=== PATIENT | female | born 1945 | race Caucasian/White ===

== ENCOUNTER → 2016-09-26 | Outpatient (CLI) | payer OTHER ==
[2016-09-26 13:06] LABS: CHOLESTEROL/HDL RATIO 1.9
== END | disposition home or self-care (01) ==
LOC: C.LABBFT 08:19
PROVIDERS: ATTEND Internal Medicine
DX: I65.29 Occlusion and stenosis of unspecified carotid artery (principal)

== ENCOUNTER → 2016-11-20 | Outpatient (CLI) | payer OTHER ==
--- NOTE | 2016-11-20 13:27 | MAMMOGRAPHY REPORT ---
BILATERAL DIGITAL SCREENING MAMMOGRAM WITH CAD: 11/20/2016 CLINICAL HISTORY: Routine screening. Patient has no complaints. TECHNIQUE: Bilateral CC and MLO views were obtained. Current study was also evaluated with a Compute r Aided Detection (CAD) system. COMPARISON: Comparison is made to exams dated: 11/20/2015 mammogram, 11/17/2014 mammogram, 11/16/2013 m ammogram, 11/09/2012 mammogram, 11/07/2011 mammogram, and 11/02/2010 mammogram - [facility]ter. BREAST COMPOSITION: There are scattered areas of fibroglandular density in both breasts. FINDINGS: There are scattered punctate benign-appearing microcalcifications in the breasts. No new s uspicious mass, architectural distortion or cluster of microcalcifications is seen. IMPRESSION: ACR BI-RADS CATEGORY 1: NEGATIVE There is no mammographic evidence of malignancy. A 1 year screening mammogram is recommended. The pa tient will receive written notification of the results. Approximately 10% of breast cancers are not detected with mammography. A negative mammographic report should not delay biopsy if a clinically suggestive mass is present. Sofía Parkre M.D. ay/:11/20/2016 11:38:17 Picker Tender Helper: Tierney ELDRIDGE(Pavan)(M), [facility] letter sent: Normal 1/2 BI-RADS Code: ACR BI-RADS Category 1: Negative
== END ==
LOC: C.MAMM 11:16
PROVIDERS: ATTEND Obstetrics & Gynecology
DX: Z12.31 Encounter for screening mammogram for malignant neoplasm of breast (principal)

== ENCOUNTER → 2017-05-06 | Outpatient (CLI) | payer OTHER ==
[2017-05-06 12:10] LABS: BASO % 0.3 %; BASO ABS # 0.02 K/uL (0-0.2); COMPLETE YES; EOS % 0.8 %; HEMATOCRIT 41.5 % (37-47); IG% 0.2 %; LYMPH ABS # 1.77 K/uL (1.2-3.4); MEAN CELL VOLUME 99.3 fL (80-100); MEAN CORPUSCULAR HEMOGLOBIN 32.8 pg (25-34); MONO % 10.3 %; NEUT % 60.4 %; PLATELET COUNT 237 K/uL (130-400); RED BLOOD COUNT 4.18 M/uL (4.2-5.4); WHITE BLOOD COUNT 6.33 K/uL (4.8-10.8)
[2017-05-06 12:45] LABS: ALT/SGPT 28 U/L (12-78); AST/SGOT 26 U/L (15-37); BLOOD UREA NITROGEN 21 mg/dl (7-18); BUN/CREATININE RATIO 31.7 (10-20); CALCIUM 8.9 mg/dl (8.5-10.1); CARBON DIOXIDE 27 mmol/L (21-32); CHLORIDE 106 mmol/L (98-107); CHOLESTEROL 169 mg/dl (0-200); CREATININE 0.66 mg/dl (0.60-1.20); GLUCOSE 87 mg/dl (70-99); POTASSIUM 4.1 mmol/L (3.5-5.1); SODIUM 138 mmol/L (136-145); TRIGLYCERIDES 134 mg/dl (0-150); VERY LOW DENSITY LIPOPROT CALC 27 mg/dl
[2017-05-06 12:46] LABS: ALKALINE PHOSPHATASE 66 U/L (45-117); CHOLESTEROL/HDL RATIO 1.9; HDL CHOLESTEROL 87 mg/dl; LDL CHOLESTEROL CALCULATED 55 mg/dl
[2017-05-06 12:54] LABS: ESTIMATED AVERAGE GLUCOSE 114 mg/dl; HA1C FLAG Normal (Normal)
== END | disposition home or self-care (01) ==
LOC: C.LABBFT 10:05
PROVIDERS: ATTEND Physician Assistant Medical
DX: M85.80 Other specified disorders of bone density and structure, unspecified site (principal)

== ENCOUNTER → 2018-01-26 | Day surgery (SDC) | payer OTHER ==
[2018-01-15 07:50] VITALS: Ht 160 cm; Wt 71.8 kg
[~2018-01-26] VITALS: Ht 160 cm; Wt 71.8 kg
[~2018-01-26] MED LIST: ATOR10TA82 PO; CHOL20007 PO; COEN1CAP7 PO; FLUT0.15 NAE; IMT100 PO; LIDOCAINE HCL 2% 2 ML VIAL (20MG/ML) ONE; PROPOFOL IV EMULSION 10 MG/ML 20 ML VIAL ONE
--- NOTE | 2018-01-26 09:15 | Endo History and Physical ---
History & Physical Date of Service: Jan 26, 2018. Chief Complaint: Screening f/u for polyp Referring Physician: Ceci History of Present Illness 72 yo CF who presents for colonoscopy secondary to history of colon polyps. Past Surgical History Hx Cardiac Surgery: No Hx Internal Defibrillator: No Hx Pacemaker: No Hx Abdominal Surgery: Yes (D&C) Hx of Implantable Prosthesis: No Hx Post-Op Nausea and Vomiting: No Hx Cancer Surgery: No Hx Thoracic Surgery: No Hx Orthopedic: No Hx Urinary Tract Surgery: No Family History None Social History Smoking Status: Never Smoker Hx Substance Use: No Hx Alcohol Use: Yes (1 DRINK DAILY (ON AVERAGE DURING THE SUMMER)) Allergies Coded Allergies: Amoxicillin (Verified Allergy, Unknown, RASH, 01/15/18) Clavulanic Acid (Verified Allergy, Unknown, RASH, 01/15/18) Uncoded Allergies: GREEN BEANS (Allergy, Unknown, RASH, 01/15/18) Current Medications Reported Home Medications Medications Dose Route/Sig Max Daily Dose Days Date Category Flonase Allergy Relief (Fluticasone Propionate (Nasal)) 50 Mcg/Act Spr 1 [place] DAILY PRN 01/15/18 Reported Coq10 (Coenzyme Q10 (Ubidecarenone)) 200 Mg Cap 1 Cap PO QPM 01/15/18 Reported Vitamin D3 (Cholecalciferol) 2,000 Unit Tab 1 Tab PO QPM 01/15/18 Reported Imitrex (Sumatriptan Succinate) 100 Mg Tab 100 Mg PO PRN PRN 01/15/18 Reported Lipitor (Atorvastatin Calcium) 10 Mg Tab 10 Mg PO Q3DAYS 01/15/18 Reported Vital Signs Weight (Kilograms): 71.82 Height (Feet): 5 Height (Inches): 3 Date Time Temp Pulse Resp B/P (MAP) Pulse Ox O2 Delivery O2 Flow Rate FiO2 01/26/18 08:59 36.9 66 16 147/83 (104) 96 Room Air Physical Exam General Appearance: WD/WN, no apparent distress Respiratory/Chest: Auscultation: breath sounds normal Cardiovascular: Heart Auscultation: RRR Abdomen: Bowel Sounds: normal Inspection & Palpation: soft, non-distended, no tenderness, guarding & rebound Assessment and Plan Assessment: 72 yo CF who presents for colonoscopy secondary to history of colon polyps. Plan: Proceed with colonoscopy.
--- NOTE | 2018-01-26 10:05 | Discharge Instructions ---
Endoscopy Patient Instructions Date / Procedure(s) Performed Jan 26, 2018. Colonoscopy Allergy Information Coded Allergies: Amoxicillin (Verified Allergy, Unknown, RASH, 01/26/18) Clavulanic Acid (Verified Allergy, Unknown, RASH, 01/26/18) Uncoded Allergies: GREEN BEANS (Allergy, Unknown, RASH, 01/15/18) Discharge Date / Findings Jan 26, 2018. Internal hemorrhoids Medication Instructions OK to resume all medications today as prescribed Reported Home Medications Medications Dose Route/Sig Max Daily Dose Days Date Category Flonase Allergy Relief (Fluticasone Propionate (Nasal)) 50 Mcg/Act Spr 1 [place] DAILY PRN 01/15/18 Reported Coq10 (Coenzyme Q10 (Ubidecarenone)) 200 Mg Cap 1 Cap PO QPM 01/15/18 Reported Vitamin D3 (Cholecalciferol) 2,000 Unit Tab 1 Tab PO QPM 01/15/18 Reported Imitrex (Sumatriptan Succinate) 100 Mg Tab 100 Mg PO PRN PRN 01/15/18 Reported Lipitor (Atorvastatin Calcium) 10 Mg Tab 10 Mg PO Q3DAYS 01/15/18 Reported Provider Instructions Activity Restrictions - No exercising or heavy lifting for 24 hours. - Do not drink alcohol the day of the procedure. - Do not drive a car or operate machinery until the day after the procedure. - Do not make any important decisions or sign important papers in 24 hours after the procedure. Following Day: - Return to full activity which may include returning to work/school. Diet Start your diet with liquids and light foods (jello, soup, juice, toast). Then eat your usual diet if not nauseated. Treatment For Common After Affects For mild abdominal pain, bloating, or excessive gas: - Rest - Eat lightly - Lie on right side Follow-Up Information Follow-up with Ceci as scheduled Anesthesia Information What You Should Know You have had a procedure that required some medicine to reduce anxiety and discomfort. This treatment is called moderate sedation. After receiving the treatment, you may be sleepy, but you will be able to breathe on your own. The effects of the treatment may last for several hours. Follow these instructions along with Activity/Diet recommendations noted above: * Do NOT do anything where dizziness or clumsiness would be dangerous. * Rest quietly at home today, then you can be up and about tomorrow. * Have a responsible person stay with you the rest of today. * You may have had an I.V. today. If so, you may take the dressing off later today. Recommendations Call your doctor if: * Trouble breathing * Continuous vomiting for more than 24 hours * Temperature above 101 degrees * Severe abdominal pain or bloating * Pain not relieved by pain medicine ordered * There is increased drainage or redness from any incision * A large amount of rectal bleeding greater than 2-3 tablespoons. (If you had a polyp/s removed or have hemorrhoids, a small amount of blood - from the rectum is to be expected.) * You have any unanswered questions or concerns. IN THE EVENT OF A SERIOUS EMERGENCY, GO TO THE NEAREST EMERGENCY ROOM Your discharge instructions were prepared by provider Neymar Patton. Patient Instructions Signature Page Jason Freed Patient (or Guardian) Signature/Date: I have read and understand the instructions given to me by my caregivers. Caregiver/RN/Doctor Signature/Date: The above-named patient and/or guardian has received patient instructions on this date. + Original Patient Signature Page (only) stays with chart. Please make copy for patient.
--- NOTE | 2018-01-26 10:09 | GI REPORT ---
Patient Name: Jason Freed Procedure Date: 01/26/2018 9:14 AM Date of : 1945 Admit Type: Outpatient Age: 72 Gender: Female Attending MD: Neymar Patton DO Procedure: Colonoscopy Providers: Neymar Patton DO Referring MD: Shaan Ornelas Indications: High risk colon cancer surveillance: Personal history of colonic polyps Medicines: Monitored Anesthesia Care Complications: No immediate complications. Estimated Blood Loss: Estimated blood loss: none. Procedure: Pre-Anesthesia Assessment: - Prior to the procedure, a History and Physical was performed, and patient medications and allergies were reviewed. The patient's tolerance of previous anesthesia was also reviewed. The risks and benefits of the procedure and the sedation options and risks were discussed with the patient. All questions were answered, and informed consent was obtained. Prior Anticoagulants: The patient has taken no previous anticoagulant or antiplatelet agents. ASA Grade Assessment: II - A patient with mild systemic disease. After reviewing the risks and benefits, the patient was deemed in satisfactory condition to undergo the procedure. After I obtained informed consent, the scope was passed under direct vision. Throughout the procedure, the patient's blood pressure, pulse, and oxygen saturations were monitored continuously. The scope was introduced through the anus and advanced to the terminal ileum. The colonoscopy was performed without difficulty. The patient tolerated the procedure well. The quality of the bowel preparation was good. The terminal ileum, ileocecal valve, appendiceal orifice, and rectum were photographed. Findings: The perianal and digital rectal examinations were normal. A 3 mm post polypectomy scar was found in the sigmoid colon. The scar tissue was healthy in appearance. Non-bleeding internal hemorrhoids were found during retroflexion. The hemorrhoids were small. Impression: - Post-polypectomy scar in the sigmoid colon. - Non-bleeding internal hemorrhoids. - No specimens collected. Recommendation: - Resume previous diet. - Continue present medications. - Repeat colonoscopy in 5 years for surveillance. - Return to primary care physician as previously scheduled. Neymar Patton DO 01/26/2018 10:08:33 AM This report has been signed electronically. Note Initiated On: 01/26/2018 9:14 AM Number of Addenda: 0 I attest to the content of the Intraoperative Record and orders documented therein, exceptions below {[id number]}
--- NOTE | 2018-01-26 10:31 | Anesthesiology Progress Note ---
Anesthesia Post Op Note Date & Time Jan 26, 2018 at 10:31 Vital Signs Pain Intensity: 0 Vital Signs Past 12 Hours Date Time Temp Pulse Resp B/P (MAP) Pulse Ox O2 Delivery O2 Flow Rate FiO2 01/26/18 10:06 65 16 117/64 (81) 95 Room Air 01/26/18 08:59 36.9 66 16 147/83 (104) 96 Room Air Notes Mental Status: alert / awake / arousable, participated in evaluation Pt Amnestic to Procedure: Yes Nausea / Vomiting: adequately controlled Pain: adequately controlled Airway Patency, RR, SpO2: stable & adequate BP & HR: stable & adequate Hydration State: stable & adequate Anesthetic Complications: no major complications apparent
[2018-01-26 10:39] VITALS: BP 122/74; PULSE 60; O2SAT 98
== END | disposition home or self-care (01) ==
LOC: C.GI 08:20
PROVIDERS: ATTEND Internal Medicine
DX: Z12.11 Encounter for screening for malignant neoplasm of colon (principal); K64.8 Other hemorrhoids; K91.89 Other postprocedural complications and disorders of digestive system; Z86.010 Personal history of colon polyps; Z88.1 Allergy status to other antibiotic agents